=== PATIENT | male | born 1995 | race Caucasian/White ===

== ENCOUNTER 2017-01-13 14:18 | Emergency (ER) | payer OTHER ==
[2017-01-13 14:25] VITALS: BP 141/92
[2017-01-13] MEDS ORDERED: PREDNISONE 20 MG TABLET PO ONE (14:56)
[2017-01-13] MEDS ORDERED: FAMOTIDINE 20 MG TABLET PO ONE (14:56)
--- NOTE | 2017-01-13 14:59 | ER Document Report ---
HPI - HPI Patient complains to provider of: Left arm pain Onset: This afternoon Onset/Duration: Sudden, Better Quality of pain: Burning Pain Level: 2 Context: Patient states that he was using a weed eater outside stinging to his left arm. Patient denies any known injury. Patient states that frequently he is struck by rocks and other debris when he is using a weed eater. Patient denies any difficulty breathing, chest pain or swelling. Patient states initially area was much more tender but has gradually started to improve Associated Symptoms: Other - Left arm stinging sensation Exacerbated by: Denies Relieved by: Other - Cool compresses Similar symptoms previously: No Recently seen / treated by doctor: No - ROS ROS below otherwise negative: Yes Systems Reviewed and Negative: Yes All other systems reviewed and negative - CONSTITUTIONAL Constitutional: DENIES: Fever, Chills - NEURO Neurology: DENIES: Headache - CARDIOVASCULAR Cardiovascular: DENIES: Chest pain - RESPIRATORY Respiratory: DENIES: Trouble Breathing, Coughing - GASTROINTESTINAL Gastrointestinal: DENIES: Nausea - MUSCULOSKELETAL Musculoskeletal: REPORTS: Extremity pain. DENIES: Back Pain, Neck Pain - DERM Skin Color: Normal Skin Problems: None Past Medical History - General Information source: Patient - Social History Smoking Status: Never Smoker Frequency of alcohol use: None Drug Abuse: None Occupation: [employer] Family History: Reviewed & Not Pertinent, Other - frequent throat infections - Medical History Medical History: Negative Renal/ Medical History: Denies: Hx Peritoneal Dialysis Past Surgical History: Reports: Other - Nasal surgery - Immunizations Immunizations up to date: Yes Hx Diphtheria, Pertussis, Tetanus Vaccination: Yes Vertical Provider Document - CONSTITUTIONAL Agree With Documented VS: Yes Exam Limitations: No Limitations General Appearance: WD/WN, No Apparent Distress - INFECTION CONTROL TRAVEL OUTSIDE OF THE [place] IN LAST 30 DAYS: No - HEENT HEENT: Atraumatic, Normal ENT Exam, Normocephalic - NECK Neck: Normal Inspection, Supple. negative: Lymphadenopathy-Left, Lymphadenopathy-Right - RESPIRATORY Respiratory: Breath Sounds Normal, No Respiratory Distress, Chest Non-Tender O2 Sat by Pulse Oximetry: 96 - CARDIOVASCULAR Cardiovascular: Regular Rate, Regular Rhythm, No Murmur Pulses: Normal: Radial - BACK Back: Normal Inspection - MUSCULOSKELETAL/EXTREMETIES Musculoskeletal/Extremeties: MAEW, FROM, Tender, No Edema - NEURO Level of Consciousness: Awake, Alert, Appropriate Motor/Sensory: No Motor Deficit - DERM Integumentary: Warm, Dry Notes: Patient with scattered erythematous macular lesions to left forearm, no obvious swelling Course - Vital Signs Vital signs: Temp Pulse Resp BP Pulse Ox 98.8 F 98 16 141/92 H 96 01/13/17 14:22 01/13/17 14:22 01/13/17 14:22 01/13/17 14:22 01/13/17 14:22 Discharge - Discharge Clinical Impression: arm stinging sensation Condition: Stable Disposition: HOME, SELF-CARE Instructions: Use of Diphenhydramine, Insect Sting ([facility]), Steroid Medication Additional Instructions: Return immediately for any new or worsening symptoms Followup with your primary care provider, call tomorrow to make a followup appointment Take Benadryl [id number] to help with her symptoms Prescriptions: Famotidine [Pepcid 20 mg Tablet] 20 mg PO BID #12 tablet Prednisone [Deltasone 10 mg Tablet] 10 mg PO ASDIR PRN #21 tablet PRN Reason: Forms: Return to Work
== END 2017-01-13 15:08 | disposition home or self-care (01) ==
LOC: ER 14:18
DX: R20.2 Paresthesia of skin (principal); M79.602 Pain in left arm
CPT/HCPCS: 99283; J7512